=== PATIENT | male | born 1975 | race Caucasian/White ===

== ENCOUNTER 2017-11-21 05:33 | Inpatient (IN) | payer MEDICARE, OTHER ==
[2017-11-20 12:41] LABS: ABG BASE EXCESS 0.9 mmol/L (-2.0-3.0); ABG HCO3 24.6 mmol/L (22.0-26.0); ABG OXYGEN SATURATION 95.2 % (95-98); ABG PH (T) 7.441 (7.350-7.450); ABG PO2 (T) 74.1 mmHg (83-108); ALLEN'S TEST Positive; FCOHb 0.6 % (0.5-1.5); FMetHb 0.2 % (0.3-1.12); FO2Hb 94.4 % (94-100); TOTAL HEMOGLOBIN 16.6 G/dl (14.0-18.0)
[2017-11-20 14:16] LABS: BASOPHILS # (AUTO) 0.1 X10'3 (0-0.2); BASOPHILS % (AUTO) 0.9 % (0-1); EOSINOPHILS # (AUTO) 0.4 X10'3 (0-0.9); EOSINOPHILS % (AUTO) 5.5 % (0-6); LYMPHOCYTES # (AUTO) 1.7 X10'3 (1.1-4.8); LYMPHOCYTES % (AUTO) 21.7 % (21-51); MEAN CORPUSCULAR HEMOGLOBIN 29.3 PG (27.0-31.0); MEAN CORPUSCULAR HGB CONC 34.7 % (33.0-36.5); MEAN CORPUSCULAR VOLUME 84.6 FL (78-98); MEAN PLATELET VOLUME 9.4 FL (7.4-10.4); MONOCYTES # (AUTO) 0.5 X10'3 (0-0.9); MONOCYTES % (AUTO) 6.3 % (2-12); NEUTROPHILS # (AUTO) 5.2 X10'3 (1.8-7.7); NEUTROPHILS % (AUTO) 65.6 % (42-75); PRE OP HEMATOCRIT 46.6 % (42.0-52.0); PRE OP HEMOGLOBIN 16.2 g/dL (14.0-17.9); PRE OP PLATELET COUNT 192 X10'3 (140-440); RED BLOOD COUNT 5.51 X10'6 (4.70-6.10); RED CELL DISTRIBUTION WIDTH 13.4 % (11.5-14.5)
[2017-11-20 14:31] LABS: ALBUMIN/GLOBULIN RATIO 1.1 (1.1-1.5); ALKALINE PHOSPHATASE 135 IU/L (46-116); BLOOD UREA NITROGEN 10 MG/DL (7-18); BUN/CREATININE RATIO 13.5 (5.4-32.0); CHLORIDE 102 MMOL/L (99-107); CREATININE 0.74 MG/DL (0.60-1.10); PRE OP ALT 59 U/L (30-65); PRE OP ANION GAP 8 (8-16); PRE OP AST 23 U/L (10-37); PRE OP BILIRUB, TOTAL 0.8 MG/DL (0.0-1.0); PRE OP GLUCOSE 179 MG/DL (70-104); PRE OP POTASSIUM 4.1 MMOL/L (3.4-5.1); PRE OP SODIUM 140 MMOL/L (135-145); TOTAL CARBON DIOXIDE 29.8 MMOL/L (24-32); TOTAL PROTEIN 7.6 G/DL (6.4-8.2); eGFR > 90 ML/MIN
[2017-11-20 14:36] LABS: CLARITY,URINE Clear (Clear); COLOR,URINE Yellow (Yellow); GLUCOSE, URINE 500 mg/dl (Neg); KETONES,URINE Negative (Neg); LEUKOCYTE ESTERASE ,URINE Negative (Neg); NITRITES, URINE Negative (Neg); OCCULT BLOOD,URINE Negative (Neg); PH,URINE 7.5 (4.8-8.0); PROTEIN,URINE Negative (Neg)
[2017-11-20 14:45] LABS: UA COLLECTION TYPE CLN CATCH MIDSTREAM
[2017-11-21] VITALS (19 sets, daily range): BP systolic 88–140; BP diastolic 45–82
[~2017-11-21] VITALS: Ht 167.6 cm; Wt 105.2 kg
[~2017-11-21 05:33] MED LIST: ASCO-261 PO; ASPI81TA52 PO; ATOR40TA71 PO; CHOL10002 PO; DOCUMENT DATE & TIME OF BETA-BLOCKER PO ONE; GLYB5TAB7 PO; LORazepam 2 mg/ml vial IV ONE; MAGN400C PO; METF500T PO; METO25TA6 PO; POTASSIUM PO; VITA1TAB20 PO; albuterol 2.5 MG/3 ML nebule NEB ONE; cefazolin/dext.iso 2gm/50ml 50 ML IV ONE; dextrose 50%-water 50ml dispensing syringe IV PRN; diazepam 5mg tablet PO ONE; famotidine 20mg tablet PO ONE; metoprolol tartrate 12.5mg (1/2 tablet) PO ONE; ringers solution, lacted 1,000 ML IV SCH; vancomycin inj 1,500 MG in normal saline 300ml IV soln IV ONE
[2017-11-21] MEDS ORDERED: SUFENTANIL CITRATE 50 MCG/ML 2ml ampule IV ONE (07:14)
[2017-11-21] MEDS ORDERED: LORazepam 2 mg/ml vial ONE (07:18)
[2017-11-21] MEDS ORDERED: nitroGLYCERIN in D5W 50mg/250ml (Tridil) infusion IV ONE (07:20)
[2017-11-21] MEDS ORDERED: DOPamine/D5W 400mg/250ml bag IV ONE (07:20)
[2017-11-21] MEDS ORDERED: isoflurane 100ml inhalation liquid IH ONE (07:20)
[2017-11-21] MEDS ORDERED: LIDOcaine 2% (20mg/ml) 5ml vial ONE (07:20)
[2017-11-21] MEDS ORDERED: protamine sulf. 10mg/ml inj. IV ONE (07:20)
[2017-11-21] MEDS ORDERED: propofol inj 20 ML IV ONE (07:20)
[2017-11-21] MEDS ORDERED: rocuronium 10mg/ml inj IV ONE ×2 (07:21→08:57)
[2017-11-21] MEDS ORDERED: aminocaproic acid 250 MG/1 ML inj. ONE (08:00)
[2017-11-21 08:06] LABS: ABG BASE EXCESS -1.9 mmol/L (-2.0-3.0); ABG HCO3 23.5 mmol/L (22.0-26.0); ABG OXYGEN SATURATION 99.3 % (95-98); ABG PCO2 42.3 mmHg (35.0-45.0); ABG PH 7.363 (7.350-7.450); ABG PO2 267.7 mmHg (60.0-100.0); CL (ABG) 102 mmol/L (99-107); FCOHb 0.6 % (0.5-1.5); FMetHb 0.3 % (0.3-1.12); FO2Hb 98.4 % (94-100); GLUCOSE (ABG) 190 mg/dl (70-105); IONIZED CA (ABG) 1.13 mmol/L (1.03-1.32); K (ABG) 4.1 mmol/L (3.3-5.1); NA (ABG) 137 mmol/L (135-145); TOTAL HEMOGLOBIN 15.2 G/dl (14.0-18.0)
[2017-11-21] MEDS ORDERED: papaverine 30 mg/ml 2ml inj. IA ONE (08:56)
[2017-11-21] MEDS: insulin regular, human 100 UNITS in normal saline 100ml IV soln 99 ML IV SCH ×20 (09:20→22:14)
[2017-11-21] MEDS: mupirocin 2% ointment 22GM TP SCH ×2 (09:20→20:00)
[2017-11-21 09:26] LABS: ABG BASE EXCESS -1.7 mmol/L (-2.0-3.0); ABG HCO3 23.3 mmol/L (22.0-26.0); ABG OXYGEN SATURATION 98.1 % (95-98); ABG PCO2 40.3 mmHg (35.0-45.0); ABG PH 7.379 (7.350-7.450); ABG PO2 120.8 mmHg (60.0-100.0); CL (ABG) 102 mmol/L (99-107); FCOHb 0.5 % (0.5-1.5); FMetHb 0.1 % (0.3-1.12); FO2Hb 97.5 % (94-100); GLUCOSE (ABG) 160 mg/dl (70-105); IONIZED CA (ABG) 1.11 mmol/L (1.03-1.32); K (ABG) 4.2 mmol/L (3.3-5.1); NA (ABG) 130 mmol/L (135-145); TOTAL HEMOGLOBIN 14.5 G/dl (14.0-18.0)
[2017-11-21 09:45] LABS: ACT @ 1.70 U 350 SEC (193-297); ACT @ 2.84 U 440 SEC (260-420); BASELINE ACT 166 SEC (101-148)
[2017-11-21 10:16] LABS: ABG HCO3 20.3 mmol/L (22.0-26.0); ABG OXYGEN SATURATION 95.7 % (95-98); ABG PCO2 34.8 mmHg (35.0-45.0); ABG PH 7.384 (7.350-7.450); ABG PO2 78.1 mmHg (60.0-100.0); CL (ABG) 103 mmol/L (99-107); FCOHb 0.5 % (0.5-1.5); FMetHb 0.3 % (0.3-1.12); FO2Hb 94.9 % (94-100); GLUCOSE (ABG) 184 mg/dl (70-105); IONIZED CA (ABG) 1.12 mmol/L (1.03-1.32); K (ABG) 4.1 mmol/L (3.3-5.1); NA (ABG) 133 mmol/L (135-145); TOTAL HEMOGLOBIN 14.3 G/dl (14.0-18.0)
[2017-11-21] MEDS ORDERED: albumin (Human) 5% 250ml 250 ML IV ONE (10:28)
[2017-11-21] MEDS ORDERED: potassium Cl 20mEq/100mL bag 100 ML IV PRN ×2 (10:35)
[2017-11-21] MEDS ORDERED: Neutra Phos packet PO PRN (10:35)
[2017-11-21] MEDS ORDERED: sodium phosphate inj. 30 MMOL in dextrose 5%-water 250 ML IV PRN (10:35)
[2017-11-21] MEDS ORDERED: nitroGLYCERIN-Tridil 50MG/D5W 250 ML IV PRN (10:35)
[2017-11-21] MEDS ORDERED: ondansetron/PF 4mg/2ml inj IV PRN (10:35)
[2017-11-21] MEDS ORDERED: HYDROcodone/acetaminophen 10/325mg tab PO PRN ×2 (10:35)
[2017-11-21] MEDS ORDERED: insulin regular, human inj. 100 UNITS in normal saline 100ml IV soln 100 ML IV SCH ×2 (10:35)
[2017-11-21] MEDS ORDERED: dextrose 50%-water 50ml dispensing syringe IV PRN (10:35)
[2017-11-21] MEDS ORDERED: acetaminophen 325mg tablet PO PRN (10:35)
[2017-11-21] MEDS ORDERED: metoclopramide 5 mg/ml inj IV PRN (10:35)
[2017-11-21] MEDS ORDERED: magnesium hydroxide 30ml (MOM) UD suspension PO PRN (10:35)
[2017-11-21] MEDS ORDERED: sodium phosphate inj. 15 MMOL in dextrose 5%-water 150 ML IV PRN (10:35)
[2017-11-21] MEDS ORDERED: albumin (Human) 5% 250ml 250 ML IV PRN (10:35)
[2017-11-21] MEDS ORDERED: normal saline 250ml IV soln 250 ML IV PRN (10:35)
[2017-11-21] MEDS ORDERED: morphine 2 MG/ML inj. syringe IV PRN (10:35)
[2017-11-21] MEDS ORDERED: niCARDipine/sod cl 20mg/200ml 200 ML IV PRN (10:35)
[2017-11-21] MEDS ORDERED: DOPamine 400mg/D5W 250ml 250 ML IV PRN (10:35)
[2017-11-21 10:56] LABS: ABG BASE EXCESS -4.9 mmol/L (-2.0-3.0); ABG HCO3 19.6 mmol/L (22.0-26.0); ABG OXYGEN SATURATION 96.8 % (95-98); ABG PCO2 (T) 33.3 mmHg (35.0-48.0); ABG PH (T) 7.383 (7.350-7.450); ABG PO2 (T) 95.6 mmHg (83-108); FCOHb 0.3 % (0.5-1.5); FMetHb 0.3 % (0.3-1.12); FO2Hb 96.2 % (94-100); MINUTE VOLUME 10 L/min; PATIENT TEMPERATURE 36.1; PEEP 5 cm H2O; RESPIRATORY RATE 12 b/min; RESPIRATORY RATE (OBSERVED) 12 b/min; TIDAL VOLUME 750 mL; TOTAL HEMOGLOBIN 13.1 G/dl (14.0-18.0)
[2017-11-21] MEDS ORDERED: ipratropium/albuterol 3ml nebule IH SCH (11:00)
[2017-11-21 11:04] LABS: BASOPHILS % (AUTO) 0.2 % (0-1); EOSINOPHILS # (AUTO) 0.3 X10'3 (0-0.9); EOSINOPHILS % (AUTO) 3.3 % (0-6); HEMOGLOBIN 12.2 g/dl (14.0-17.9); LYMPHOCYTES # (AUTO) 0.9 X10'3 (1.1-4.8); LYMPHOCYTES % (AUTO) 10.7 % (21-51); MEAN CORPUSCULAR HEMOGLOBIN 29.4 PG (27.0-31.0); MEAN CORPUSCULAR HGB CONC 34.8 % (33.0-36.5); MEAN CORPUSCULAR VOLUME 84.7 FL (78-98); MEAN PLATELET VOLUME 8.8 FL (7.4-10.4); MONOCYTES # (AUTO) 0.4 X10'3 (0-0.9); MONOCYTES % (AUTO) 4.7 % (2-12); NEUTROPHILS # (AUTO) 6.8 X10'3 (1.8-7.7); NEUTROPHILS % (AUTO) 81.1 % (42-75); PLATELET COUNT 157 X10'3 (140-440); RED BLOOD COUNT 4.14 X10'6 (4.70-6.10); RED CELL DISTRIBUTION WIDTH 13.2 % (11.5-14.5); WHITE BLOOD COUNT 8.4 X10'3 (4.5-11.0)
[2017-11-21 11:14] LABS: INR 1.1 INR; PARTIAL THROMBOPLASTIN TIME 25 SECONDS (22-32); PROTHROMBIN TIME 11.6 SECONDS (9.0-12.0)
[2017-11-21 11:20] LABS: ALANINE AMINOTRANSFERASE 37 U/L (12-78); ALBUMIN/GLOBULIN RATIO 1.3 (1.1-1.5); ALKALINE PHOSPHATASE 89 IU/L (46-116); ANION GAP 11 (8-16); ASPARTATE AMINO TRANSFERASE 17 U/L (10-37); BILIRUBIN,TOTAL 0.5 MG/DL (0.1-1.0); BLOOD UREA NITROGEN 12 MG/DL (7-18); BUN/CREATININE RATIO 15.8 (5.4-32.0); CALCIUM 7.1 MG/DL (8.5-10.1); CHLORIDE 108 MMOL/L (99-107); CREATININE 0.76 MG/DL (0.60-1.10); GLUCOSE 170 MG/DL (70-104); MAGNESIUM 1.5 MG/DL (1.5-2.4); PHOSPHORUS 3.7 MG/DL (2.3-4.5); POTASSIUM 3.8 MMOL/L (3.5-5.1); SODIUM 142 MMOL/L (135-145); TOTAL CARBON DIOXIDE 23.3 MMOL/L (24-32); TOTAL PROTEIN 5.3 G/DL (6.4-8.2); eGFR > 90 ML/MIN
[2017-11-21] MEDS: sodium chloride 0.45% 1,000 ML IV SCH (11:24)
[2017-11-21] MEDS: insulin Lispro (HumaLOG) vial - multi-dose SQ SCH ×2 (11:44→17:39)
[2017-11-21 11:45] LABS: ACTIVATED CLOTTING TIME 119 SEC (101-148)
[2017-11-21] MEDS: morphine 2 MG/ML inj. syringe IV PRN ×3 (12:06→14:13)
[2017-11-21] MEDS: magnesium 2GM in 50ml NS 50 ML IV PRN (12:20)
[2017-11-21] MEDS: potassium Cl 20mEq/100mL bag 100 ML IV PRN ×2 (12:28→13:45)
[2017-11-21] MEDS: magnesium 4gm in 100ml NS 100 ML IV PRN (13:44)
[2017-11-21] MEDS: MORPHINE 2MG in 2ml NS syringe IV PRN ×3 (14:43→22:53)
[2017-11-21 16:01] LABS: ABG BASE EXCESS -7.3 mmol/L (-2.0-3.0); ABG HCO3 19.6 mmol/L (22.0-26.0); ABG OXYGEN SATURATION 94.3 % (95-98); ABG PCO2 (T) 44.8 mmHg (35.0-48.0); ABG PH (T) 7.259 (7.350-7.450); ABG PO2 (T) 82.6 mmHg (83-108); FCOHb 0.5 % (0.5-1.5); FMetHb 0.2 % (0.3-1.12); FO2Hb 93.6 % (94-100); MINUTE VOLUME 13 L/min; PEEP 5 cm H2O; TOTAL HEMOGLOBIN 14.8 G/dl (14.0-18.0)
[2017-11-21] MEDS ORDERED: morphine 10mg/ml inj. IV ONE (16:10)
[2017-11-21] MEDS: cefazolin 1gm/NS 100mL 100 ML IV SCH ×2 (16:13→23:36)
[2017-11-21 17:27] LABS: BASOPHILS % (AUTO) 0 % (0-1); EOSINOPHILS # (AUTO) 0.2 X10'3 (0-0.9); EOSINOPHILS % (AUTO) 1.6 % (0-6); HEMATOCRIT 38.5 % (42.0-52.0); HEMOGLOBIN 13.6 g/dl (14.0-17.9); LYMPHOCYTES # (AUTO) 0.5 X10'3 (1.1-4.8); LYMPHOCYTES % (AUTO) 3.3 % (21-51); MEAN CORPUSCULAR HEMOGLOBIN 29.7 PG (27.0-31.0); MEAN CORPUSCULAR HGB CONC 35.2 % (33.0-36.5); MEAN CORPUSCULAR VOLUME 84.3 FL (78-98); MEAN PLATELET VOLUME 8.9 FL (7.4-10.4); MONOCYTES # (AUTO) 0.8 X10'3 (0-0.9); NEUTROPHILS # (AUTO) 14.2 X10'3 (1.8-7.7); NEUTROPHILS % (AUTO) 90.1 % (42-75); PLATELET COUNT 208 X10'3 (140-440); RED BLOOD COUNT 4.57 X10'6 (4.70-6.10); RED CELL DISTRIBUTION WIDTH 12.9 % (11.5-14.5); WHITE BLOOD COUNT 15.8 X10'3 (4.5-11.0)
[2017-11-21 17:40] LABS: ALBUMIN 3.3 G/DL (3.4-5.0); ANION GAP 10 (8-16); BLOOD UREA NITROGEN 13 MG/DL (7-18); BUN/CREATININE RATIO 15.9 (5.4-32.0); CALCIUM 7.6 MG/DL (8.5-10.1); CHLORIDE 108 MMOL/L (99-107); CREATININE 0.82 MG/DL (0.60-1.10); GLUCOSE 136 MG/DL (70-104); POTASSIUM 4.3 MMOL/L (3.5-5.1); SODIUM 141 MMOL/L (135-145); eGFR > 90 ML/MIN
[2017-11-21 17:40] LABS: ABG BASE EXCESS -5.6 mmol/L (-2.0-3.0); ABG HCO3 19.1 mmol/L (22.0-26.0); ABG PCO2 (T) 34.9 mmHg (35.0-48.0); ABG PH (T) 7.356 (7.350-7.450); ABG PO2 (T) 69.6 mmHg (83-108); FCOHb 0.3 % (0.5-1.5); FMetHb 0.3 % (0.3-1.12); FO2Hb 93.4 % (94-100); TOTAL HEMOGLOBIN 13.9 G/dl (14.0-18.0)
[2017-11-21] MEDS: vancomycin/NS 1 GM ADD-VANTAGE 250 ML IV SCH (20:19)
[2017-11-21] MEDS: docusate sod 100mg capsule PO SCH (20:20)
[2017-11-21] MEDS: mupirocin 2% ointment 22GM NS SCH (20:23)
[2017-11-22] VITALS (24 sets, daily range): BP systolic 105–137; BP diastolic 44–70
[2017-11-22] MEDS: MORPHINE 2MG in 2ml NS syringe IV PRN ×4 (01:01→09:03)
[2017-11-22] MEDS: insulin regular, human 100 UNITS in normal saline 100ml IV soln 99 ML IV SCH ×4 (01:12→03:03)
[2017-11-22 05:22] LABS: BASOPHILS # (AUTO) 0.2 X10'3 (0-0.2); BASOPHILS % (AUTO) 1.4 % (0-1); EOSINOPHILS # (AUTO) 0.1 X10'3 (0-0.9); EOSINOPHILS % (AUTO) 1.1 % (0-6); HEMATOCRIT 37.1 % (42.0-52.0); HEMOGLOBIN 12.9 g/dl (14.0-17.9); LYMPHOCYTES # (AUTO) 1.3 X10'3 (1.1-4.8); LYMPHOCYTES % (AUTO) 12.1 % (21-51); MEAN CORPUSCULAR HEMOGLOBIN 29.7 PG (27.0-31.0); MEAN CORPUSCULAR HGB CONC 34.8 % (33.0-36.5); MEAN CORPUSCULAR VOLUME 85.2 FL (78-98); MEAN PLATELET VOLUME 9.1 FL (7.4-10.4); MONOCYTES % (AUTO) 8.8 % (2-12); NEUTROPHILS # (AUTO) 8.4 X10'3 (1.8-7.7); NEUTROPHILS % (AUTO) 76.6 % (42-75); PLATELET COUNT 189 X10'3 (140-440); RED BLOOD COUNT 4.35 X10'6 (4.70-6.10)
[2017-11-22 05:40] LABS: PARTIAL THROMBOPLASTIN TIME 26 SECONDS (22-32); PROTHROMBIN TIME 10.8 SECONDS (9.0-12.0)
[2017-11-22 06:18] LABS: ALANINE AMINOTRANSFERASE 48 U/L (12-78); ALBUMIN 3.1 G/DL (3.4-5.0); ALBUMIN/GLOBULIN RATIO 1.1 (1.1-1.5); ALKALINE PHOSPHATASE 84 IU/L (46-116); ANION GAP 10 (8-16); ASPARTATE AMINO TRANSFERASE 59 U/L (10-37); BLOOD UREA NITROGEN 12 MG/DL (7-18); BUN/CREATININE RATIO 16.9 (5.4-32.0); CALCIUM 7.8 MG/DL (8.5-10.1); CHLORIDE 105 MMOL/L (99-107); CREATININE 0.71 MG/DL (0.60-1.10); GLUCOSE 138 MG/DL (70-104); MAGNESIUM 2.1 MG/DL (1.5-2.4); PHOSPHORUS 3.6 MG/DL (2.3-4.5); POTASSIUM 3.9 MMOL/L (3.5-5.1); SODIUM 138 MMOL/L (135-145); TOTAL CARBON DIOXIDE 22.6 MMOL/L (24-32); TOTAL PROTEIN 5.9 G/DL (6.4-8.2); eGFR > 90 ML/MIN
[2017-11-22] MEDS: potassium Cl 20mEq/100mL bag 100 ML IV PRN ×2 (06:25→11:27)
[2017-11-22] MEDS ORDERED: albuterol 2.5 MG/3 ML nebule NEB PRN (07:15)
[2017-11-22] MEDS: ketorolac tromethamine 15mg/ml inj. IV SCH ×3 (07:40→20:53)
[2017-11-22] MEDS: cefazolin 1gm/NS 100mL 100 ML IV SCH ×3 (07:45→23:49)
[2017-11-22] MEDS: aspirin 325mg tablet, delayed-release (Ecotrin) PO SCH (07:46)
[2017-11-22] MEDS: pantoprazole 40mg Tablet.DR PO SCH (07:46)
[2017-11-22] MEDS: atorvastatin 10mg tablet PO SCH (07:47)
[2017-11-22] MEDS: docusate sod 100mg capsule PO SCH ×2 (07:47→19:55)
[2017-11-22] MEDS: ascorbic acid 500mg tablet PO SCH (07:47)
[2017-11-22] MEDS: mupirocin 2% ointment 22GM NS SCH (07:48)
[2017-11-22] MEDS: cholecalciferol (vitamin D) 400 unit tablet PO SCH (07:48)
[2017-11-22] MEDS: mupirocin 2% ointment 22GM TP SCH ×2 (07:49→22:16)
[2017-11-22] MEDS: vancomycin/NS 1 GM ADD-VANTAGE 250 ML IV SCH ×2 (07:49→19:52)
[2017-11-22] MEDS ORDERED: metoprolol tartrate 12.5mg (1/2 tablet) PO SCH ×2 (08:00→12:00)
[2017-11-22] MEDS: vitamin B comp w/Vit. C tab 1 TAB TABLET PO SCH (08:00)
[2017-11-22] MEDS: magnesium 2GM in 50ml NS 50 ML IV PRN (10:09)
[2017-11-22] MEDS: insulin Lispro (HumaLOG) vial - multi-dose SQ SCH ×3 (11:08→19:51)
[2017-11-22] MEDS ORDERED: metoprolol tartrate 12.5mg (1/2 tablet) PO ONE (12:00)
[2017-11-22 13:08] LABS: MAGNESIUM 2.9 MG/DL (1.5-2.4); POTASSIUM 4.5 MMOL/L (3.5-5.1)
[2017-11-22] MEDS: acetaminophen w/codeine (30MG) #3 tablet PO PRN ×3 (13:16→23:50)
[2017-11-22] MEDS ORDERED: metoprolol tartrate 25mg tablet PO SCH (13:45)
[2017-11-22] MEDS ORDERED: metoprolol tartrate 25mg tablet PO ONE (13:45)
[2017-11-22] MEDS ORDERED: glucagon, human recombinant 1mg kit SUBCUT PRN (16:00)
[2017-11-22] MEDS ORDERED: dextrose 50%-water 50ml dispensing syringe IV PRN ×2 (16:00)
[2017-11-22] MEDS ORDERED: MESSAGE TO PHARMACY PO ONE (16:00)
[2017-11-22] MEDS ORDERED: dextrose ORAL solution 15 GM/59 ML bottle PO PRN ×2 (16:00)
[2017-11-22] MEDS: metoprolol tartrate 50mg tablet PO SCH (19:57)
[2017-11-22] MEDS: Protein Shake (high protein) 240ml (8oz) cup PO SCH (19:59)
[2017-11-22] MEDS: insulin glargine (Lantus) pen - multi-dose SQ SCH (22:13)
[2017-11-23] VITALS (17 sets, daily range): BP systolic 107–156; BP diastolic 59–83
[2017-11-23] MEDS ORDERED: ketorolac tromethamine 15mg/ml inj. IV SCH (03:21)
[2017-11-23] MEDS: ketorolac tromethamine 15mg/ml inj. IV SCH (03:33)
[2017-11-23 04:42] LABS: BASOPHILS % (AUTO) 0.3 % (0-1); EOSINOPHILS # (AUTO) 0.3 X10'3 (0-0.9); EOSINOPHILS % (AUTO) 2.5 % (0-6); HEMATOCRIT 34.7 % (42.0-52.0); LYMPHOCYTES # (AUTO) 1.3 X10'3 (1.1-4.8); LYMPHOCYTES % (AUTO) 12.9 % (21-51); MEAN CORPUSCULAR HEMOGLOBIN 29.9 PG (27.0-31.0); MEAN CORPUSCULAR HGB CONC 34.6 % (33.0-36.5); MEAN CORPUSCULAR VOLUME 86.4 FL (78-98); MEAN PLATELET VOLUME 8.9 FL (7.4-10.4); MONOCYTES # (AUTO) 0.9 X10'3 (0-0.9); MONOCYTES % (AUTO) 8.6 % (2-12); NEUTROPHILS # (AUTO) 7.7 X10'3 (1.8-7.7); NEUTROPHILS % (AUTO) 75.7 % (42-75); PLATELET COUNT 168 X10'3 (140-440); RED BLOOD COUNT 4.01 X10'6 (4.70-6.10); RED CELL DISTRIBUTION WIDTH 13.4 % (11.5-14.5); WHITE BLOOD COUNT 10.2 X10'3 (4.5-11.0)
[2017-11-23 04:55] LABS: ALBUMIN 2.9 G/DL (3.4-5.0); ANION GAP 8 (8-16); BLOOD UREA NITROGEN 15 MG/DL (7-18); BUN/CREATININE RATIO 17.9 (5.4-32.0); CALCIUM 8.6 MG/DL (8.5-10.1); CHLORIDE 103 MMOL/L (99-107); CREATININE 0.84 MG/DL (0.60-1.10); GLUCOSE 201 MG/DL (70-104); MAGNESIUM 1.9 MG/DL (1.5-2.4); PHOSPHORUS 2.8 MG/DL (2.3-4.5); POTASSIUM 4.6 MMOL/L (3.5-5.1); SODIUM 136 MMOL/L (135-145); TOTAL CARBON DIOXIDE 25.4 MMOL/L (24-32); eGFR > 90 ML/MIN
[2017-11-23] MEDS: acetaminophen w/codeine (30MG) #3 tablet PO PRN ×5 (05:10→23:22)
[2017-11-23] MEDS: NUT.TX.GLUC.INTOLER,LAC-FR,REG (BOOST GLUCOSE CONTROL) 237 ML PO SCH (08:00)
[2017-11-23] MEDS: vitamin B comp w/Vit. C tab 1 TAB TABLET PO SCH (09:34)
[2017-11-23] MEDS: ascorbic acid 500mg tablet PO SCH (09:34)
[2017-11-23] MEDS: aspirin 325mg tablet, delayed-release (Ecotrin) PO SCH (09:35)
[2017-11-23] MEDS: metoprolol tartrate 50mg tablet PO SCH ×2 (09:35→19:31)
[2017-11-23] MEDS: atorvastatin 10mg tablet PO SCH (09:35)
[2017-11-23] MEDS: pantoprazole 40mg Tablet.DR PO SCH (09:36)
[2017-11-23] MEDS: docusate sod 100mg capsule PO SCH ×2 (09:36→20:46)
[2017-11-23] MEDS: Protein Shake (high protein) 240ml (8oz) cup PO SCH ×2 (09:36→13:39)
[2017-11-23] MEDS: cholecalciferol (vitamin D) 400 unit tablet PO SCH (09:37)
[2017-11-23] MEDS: mupirocin 2% ointment 22GM TP SCH ×2 (09:38→20:47)
[2017-11-23] MEDS: insulin Lispro (HumaLOG) vial - multi-dose SQ SCH ×4 (10:09→22:10)
[2017-11-23] MEDS: sodium chloride 0.45% 1,000 ML IV SCH (10:35)
[2017-11-23] MEDS ORDERED: morphine 4 MG/ML inj SYRINge IV PRN (18:56)
[2017-11-23] MEDS: magnesium 4gm in 100ml NS 100 ML IV PRN (19:25)
[2017-11-23] MEDS ORDERED: amiodarone 150mg/dext, iso-os 100 ML IV ONE ×2 (19:40)
[2017-11-23] MEDS: insulin glargine (Lantus) pen - multi-dose SQ SCH (22:12)
[2017-11-24] VITALS (24 sets, daily range): BP systolic 97–144; BP diastolic 57–84
[2017-11-24] MEDS: morphine 4 MG/ML inj SYRINge IV PRN ×2 (02:18→05:27)
[2017-11-24 03:10] LABS: BASOPHILS # (AUTO) 0.2 X10'3 (0-0.2); BASOPHILS % (AUTO) 1.5 % (0-1); EOSINOPHILS # (AUTO) 0.5 X10'3 (0-0.9); EOSINOPHILS % (AUTO) 4.5 % (0-6); HEMATOCRIT 34.8 % (42.0-52.0); LYMPHOCYTES # (AUTO) 2.1 X10'3 (1.1-4.8); LYMPHOCYTES % (AUTO) 20.1 % (21-51); MEAN CORPUSCULAR HGB CONC 34.6 % (33.0-36.5); MEAN CORPUSCULAR VOLUME 86.7 FL (78-98); MEAN PLATELET VOLUME 9.5 FL (7.4-10.4); MONOCYTES # (AUTO) 0.7 X10'3 (0-0.9); NEUTROPHILS % (AUTO) 66.9 % (42-75); PLATELET COUNT 176 X10'3 (140-440); RED BLOOD COUNT 4.01 X10'6 (4.70-6.10); RED CELL DISTRIBUTION WIDTH 13.3 % (11.5-14.5); WHITE BLOOD COUNT 10.4 X10'3 (4.5-11.0)
[2017-11-24 03:24] LABS: ALBUMIN 2.8 G/DL (3.4-5.0); ANION GAP 9 (8-16); BLOOD UREA NITROGEN 11 MG/DL (7-18); BUN/CREATININE RATIO 13.3 (5.4-32.0); CALCIUM 8.2 MG/DL (8.5-10.1); CHLORIDE 104 MMOL/L (99-107); CREATININE 0.83 MG/DL (0.60-1.10); GLUCOSE 215 MG/DL (70-104); MAGNESIUM 2.3 MG/DL (1.5-2.4); POTASSIUM 4.2 MMOL/L (3.5-5.1); SODIUM 139 MMOL/L (135-145); TOTAL CARBON DIOXIDE 26.2 MMOL/L (24-32); eGFR > 90 ML/MIN
[2017-11-24] MEDS: acetaminophen w/codeine (30MG) #3 tablet PO PRN ×5 (03:36→22:46)
[2017-11-24] MEDS: NUT.TX.GLUC.INTOLER,LAC-FR,REG (BOOST GLUCOSE CONTROL) 237 ML PO SCH ×3 (08:00→18:00)
[2017-11-24] MEDS: atorvastatin 10mg tablet PO SCH (09:39)
[2017-11-24] MEDS: aspirin 325mg tablet, delayed-release (Ecotrin) PO SCH (09:39)
[2017-11-24] MEDS: pantoprazole 40mg Tablet.DR PO SCH (09:39)
[2017-11-24] MEDS: metoprolol tartrate 50mg tablet PO SCH ×2 (09:40→19:58)
[2017-11-24] MEDS: docusate sod 100mg capsule PO SCH ×2 (09:40→19:58)
[2017-11-24] MEDS: ascorbic acid 500mg tablet PO SCH (09:41)
[2017-11-24] MEDS: cholecalciferol (vitamin D) 400 unit tablet PO SCH (09:41)
[2017-11-24] MEDS: vitamin B comp w/Vit. C tab 1 TAB TABLET PO SCH (09:41)
[2017-11-24] MEDS: mupirocin 2% ointment 22GM TP SCH ×2 (09:42→19:58)
[2017-11-24] MEDS: insulin Lispro (HumaLOG) vial - multi-dose SQ SCH ×3 (10:29→20:00)
[2017-11-24] MEDS: amiodarone/D5 450MG/250ML BAG 250 ML IV SCH (18:46)
[2017-11-24] MEDS: insulin glargine (Lantus) pen - multi-dose SQ SCH (21:37)
[2017-11-25] VITALS (20 sets, daily range): BP systolic 90–159; BP diastolic 57–81
[2017-11-25] MEDS: morphine 4 MG/ML inj SYRINge IV PRN (00:17)
[2017-11-25] MEDS: acetaminophen w/codeine (30MG) #3 tablet PO PRN ×4 (03:52→20:07)
[2017-11-25 06:07] LABS: BASOPHILS # (AUTO) 0.1 X10'3 (0-0.2); BASOPHILS % (AUTO) 0.7 % (0-1); EOSINOPHILS # (AUTO) 0.6 X10'3 (0-0.9); EOSINOPHILS % (AUTO) 7.1 % (0-6); HEMOGLOBIN 11.8 g/dl (14.0-17.9); LYMPHOCYTES # (AUTO) 1.9 X10'3 (1.1-4.8); LYMPHOCYTES % (AUTO) 21.3 % (21-51); MEAN CORPUSCULAR HEMOGLOBIN 29.8 PG (27.0-31.0); MEAN CORPUSCULAR HGB CONC 34.7 % (33.0-36.5); MEAN PLATELET VOLUME 9.8 FL (7.4-10.4); MONOCYTES # (AUTO) 0.6 X10'3 (0-0.9); MONOCYTES % (AUTO) 7.2 % (2-12); NEUTROPHILS # (AUTO) 5.6 X10'3 (1.8-7.7); NEUTROPHILS % (AUTO) 63.7 % (42-75); PLATELET COUNT 194 X10'3 (140-440); RED BLOOD COUNT 3.96 X10'6 (4.70-6.10); RED CELL DISTRIBUTION WIDTH 13.4 % (11.5-14.5); WHITE BLOOD COUNT 8.8 X10'3 (4.5-11.0)
[2017-11-25 06:22] LABS: ALBUMIN 2.5 G/DL (3.4-5.0); ANION GAP 11 (8-16); BLOOD UREA NITROGEN 15 MG/DL (7-18); BUN/CREATININE RATIO 19.5 (5.4-32.0); CALCIUM 8.5 MG/DL (8.5-10.1); CHLORIDE 100 MMOL/L (99-107); CREATININE 0.77 MG/DL (0.60-1.10); GLUCOSE 177 MG/DL (70-104); PHOSPHORUS 5.6 MG/DL (2.3-4.5); POTASSIUM 4.6 MMOL/L (3.5-5.1); SODIUM 137 MMOL/L (135-145); TOTAL CARBON DIOXIDE 26.4 MMOL/L (24-32); eGFR > 90 ML/MIN
[2017-11-25] MEDS: pantoprazole 40mg Tablet.DR PO SCH (08:07)
[2017-11-25] MEDS: atorvastatin 10mg tablet PO SCH (08:07)
[2017-11-25] MEDS: docusate sod 100mg capsule PO SCH ×2 (08:07→20:07)
[2017-11-25] MEDS: aspirin 325mg tablet, delayed-release (Ecotrin) PO SCH (08:07)
[2017-11-25] MEDS: mupirocin 2% ointment 22GM TP SCH ×2 (08:08→20:07)
[2017-11-25] MEDS: ascorbic acid 500mg tablet PO SCH (08:08)
[2017-11-25] MEDS: cholecalciferol (vitamin D) 400 unit tablet PO SCH (08:08)
[2017-11-25] MEDS: vitamin B comp w/Vit. C tab 1 TAB TABLET PO SCH (08:08)
[2017-11-25] MEDS: metoprolol tartrate 50mg tablet PO SCH (08:12)
[2017-11-25] MEDS: NUT.TX.GLUC.INTOLER,LAC-FR,REG (BOOST GLUCOSE CONTROL) 237 ML PO SCH ×3 (08:14→18:34)
[2017-11-25] MEDS: amiodarone/D5 450MG/250ML BAG 250 ML IV SCH (09:17)
[2017-11-25] MEDS: insulin Lispro (HumaLOG) vial - multi-dose SQ SCH ×3 (09:31→19:02)
[2017-11-25] MEDS ORDERED: furosemide 40mg/4ml inj IV ONE (10:10)
[2017-11-25] MEDS: sodium chloride 0.45% 1,000 ML IV SCH (10:35)
[2017-11-25] MEDS: amiodarone 200mg tablet PO SCH ×2 (12:51→20:06)
[2017-11-25] MEDS: metoprolol tartrate 25mg tablet PO SCH (20:07)
[2017-11-25] MEDS: insulin glargine (Lantus) pen - multi-dose SQ SCH (21:43)
[2017-11-26] VITALS (20 sets, daily range): BP systolic 95–149; BP diastolic 55–88
[2017-11-26] MEDS: acetaminophen w/codeine (30MG) #3 tablet PO PRN ×4 (03:07→20:34)
[2017-11-26 03:49] LABS: MAGNESIUM 2.3 MG/DL (1.5-2.4); PHOSPHORUS 5.5 MG/DL (2.3-4.5); POTASSIUM 4.1 MMOL/L (3.5-5.1)
[2017-11-26] MEDS: atorvastatin 20mg tablet PO SCH (07:21)
[2017-11-26] MEDS: ascorbic acid 500mg tablet PO SCH (07:22)
[2017-11-26] MEDS: cholecalciferol (vitamin D) 400 unit tablet PO SCH (07:22)
[2017-11-26] MEDS: pantoprazole 40mg Tablet.DR PO SCH (07:23)
[2017-11-26] MEDS: amiodarone 200mg tablet PO SCH ×3 (07:23→20:34)
[2017-11-26] MEDS: docusate sod 100mg capsule PO SCH ×2 (07:23→19:00)
[2017-11-26] MEDS: vitamin B comp w/Vit. C tab 1 TAB TABLET PO SCH (07:23)
[2017-11-26] MEDS: aspirin 325mg tablet, delayed-release (Ecotrin) PO SCH (07:25)
[2017-11-26] MEDS: metoprolol tartrate 25mg tablet PO SCH ×2 (07:28→19:00)
[2017-11-26] MEDS: mupirocin 2% ointment 22GM TP SCH ×2 (07:28→19:01)
[2017-11-26] MEDS: NUT.TX.GLUC.INTOLER,LAC-FR,REG (BOOST GLUCOSE CONTROL) 237 ML PO SCH ×3 (08:30→17:57)
[2017-11-26] MEDS: insulin Lispro (HumaLOG) vial - multi-dose SQ SCH ×3 (09:00→19:00)
[2017-11-26] MEDS: insulin glargine (Lantus) pen - multi-dose SQ SCH (21:28)
[2017-11-27] MEDS: acetaminophen w/codeine (30MG) #3 tablet PO PRN ×3 (00:40→11:01)
[2017-11-27 03:00] VITALS: BP 125/78
[2017-11-27] MEDS: amiodarone 200mg tablet PO SCH ×2 (03:06→12:52)
[2017-11-27 05:33] LABS: BASOPHILS # (AUTO) 0.1 X10'3 (0-0.2); BASOPHILS % (AUTO) 0.8 % (0-1); EOSINOPHILS # (AUTO) 0.6 X10'3 (0-0.9); EOSINOPHILS % (AUTO) 8.5 % (0-6); HEMOGLOBIN 14.3 g/dl (14.0-17.9); LYMPHOCYTES # (AUTO) 1.9 X10'3 (1.1-4.8); LYMPHOCYTES % (AUTO) 26.6 % (21-51); MEAN CORPUSCULAR HEMOGLOBIN 29.6 PG (27.0-31.0); MEAN CORPUSCULAR HGB CONC 34.9 % (33.0-36.5); MEAN CORPUSCULAR VOLUME 84.8 FL (78-98); MONOCYTES # (AUTO) 0.5 X10'3 (0-0.9); MONOCYTES % (AUTO) 7.4 % (2-12); NEUTROPHILS # (AUTO) 4.1 X10'3 (1.8-7.7); NEUTROPHILS % (AUTO) 56.7 % (42-75); PLATELET COUNT 269 X10'3 (140-440); RED BLOOD COUNT 4.84 X10'6 (4.70-6.10); RED CELL DISTRIBUTION WIDTH 13.2 % (11.5-14.5); WHITE BLOOD COUNT 7.2 X10'3 (4.5-11.0)
[2017-11-27 06:00] VITALS: BP 92/66
[2017-11-27 06:41] LABS: ALANINE AMINOTRANSFERASE 38 U/L (12-78); ALBUMIN 3.2 G/DL (3.4-5.0); ALBUMIN/GLOBULIN RATIO 0.7 (1.1-1.5); ALKALINE PHOSPHATASE 98 IU/L (46-116); ANION GAP 10 (8-16); ASPARTATE AMINO TRANSFERASE 21 U/L (10-37); BLOOD UREA NITROGEN 12 MG/DL (7-18); CALCIUM 9.1 MG/DL (8.5-10.1); CHLORIDE 102 MMOL/L (99-107); CREATININE 0.92 MG/DL (0.60-1.10); GLUCOSE 146 MG/DL (70-104); POTASSIUM 4.3 MMOL/L (3.5-5.1); SODIUM 141 MMOL/L (135-145); TOTAL PROTEIN 7.6 G/DL (6.4-8.2); eGFR 90 ML/MIN
[2017-11-27 07:44] LABS: MAGNESIUM 2.1 MG/DL (1.5-2.4)
[2017-11-27] MEDS ORDERED: aspirin 81mg tablet.DR PO SCH (08:00)
[2017-11-27] MEDS: vitamin B comp w/Vit. C tab 1 TAB TABLET PO SCH (08:00)
[2017-11-27] MEDS ORDERED: apixaban 5mg tablet PO SCH (08:00)
[2017-11-27] MEDS: cholecalciferol (vitamin D) 400 unit tablet PO SCH (08:00)
[2017-11-27 08:30] VITALS: BP 133/86
[2017-11-27] MEDS: insulin Lispro (HumaLOG) vial - multi-dose SQ SCH (08:37)
[2017-11-27] MEDS: pantoprazole 40mg Tablet.DR PO SCH (08:39)
[2017-11-27] MEDS: docusate sod 100mg capsule PO SCH (08:40)
[2017-11-27] MEDS: NUT.TX.GLUC.INTOLER,LAC-FR,REG (BOOST GLUCOSE CONTROL) 237 ML PO SCH (08:40)
[2017-11-27] MEDS: atorvastatin 20mg tablet PO SCH (08:42)
[2017-11-27] MEDS: metoprolol tartrate 25mg tablet PO SCH (08:43)
[2017-11-27] MEDS: ascorbic acid 500mg tablet PO SCH (08:43)
[2017-11-27 11:00] VITALS: BP 150/87
== END 2017-11-27 13:05 | DRG 236 ==
LOC: PAS IN 05:33 → EDSTATUS 07:30 → CICU 2S 10:26 → PCU 3S 11-26 16:25
PROVIDERS: ADMIT Thoracic Surgery (Cardiothoracic Vascular Surgery); ATTEND Thoracic Surgery (Cardiothoracic Vascular Surgery)
PROC: B24BZZ4 Ultrasonography of Heart with Aorta, Transesophageal (ICD-10-PCS; 2017-11-21)
PROC: 02HV33Z Insertion of Infusion Device into Superior Vena Cava, Percutaneous Approach (ICD-10-PCS; 2017-11-21)
PROC: 02HQ32Z Insertion of Monitoring Device into Right Pulmonary Artery, Percutaneous Approach (ICD-10-PCS; 2017-11-21)
PROC: 4A133B3 Monitoring of Arterial Pressure, Pulmonary, Percutaneous Approach (ICD-10-PCS; 2017-11-21)
PROC: 4A1239Z Monitoring of Cardiac Output, Percutaneous Approach (ICD-10-PCS; 2017-11-21)
PROC: 02100Z9 Bypass Coronary Artery, One Artery from Left Internal Mammary, Open Approach (ICD-10-PCS; principal; 2017-11-21 07:20)
DX: I25.110 Atherosclerotic heart disease of native coronary artery with unstable angina pectoris (principal); E66.01 Morbid (severe) obesity due to excess calories; Z89.611 Acquired absence of right leg above knee; I48.91 Unspecified atrial fibrillation; I10 Essential (primary) hypertension; E78.5 Hyperlipidemia, unspecified; E11.9 Type 2 diabetes mellitus without complications; G47.30 Sleep apnea, unspecified; Z79.84 Long term (current) use of oral hypoglycemic drugs; Z68.37 Body mass index [BMI] 37.0-37.9, adult
CPT/HCPCS: 0232T; 93312; 93325; 36415; 36600; 71045; 71046; 80048; 80053; 81003; 82330; 82435; 82803; 82947; 82948; 83036; 83735; 84100; 84132; 84295; 85018; 85025; 85347; 85384; 85610; 85730; 86885; 86900; 86901; 86920; 87070; 93005; 93880; 93971; 94002; 94010; 94640; 94668; 94760; 97110; 97116; 97162; 97530; A4333; A6213; A6255; A6258; A6402; A6449; A7000; A7015; A7048; C1713; C1751; J0282; J0690; J1265; J1644; J1815; J1885; J1940; J2001; J2060; J2270; J2274; J2405; J2440; J2704; J2720; J3370; J3475; J3480; J3490; J7030; J7120; P9045

== ENCOUNTER 2018-12-10 01:13 | Emergency (ER) | payer MEDICARE, OTHER ==
[~2018-12-10] VITALS: Ht 172.7 cm; Wt 118.2 kg
[~2018-12-10 01:13] MED LIST changes: -DOCUMENT DATE & TIME OF BETA-BLOCKER PO ONE; -LORazepam 2 mg/ml vial IV ONE; -albuterol 2.5 MG/3 ML nebule NEB ONE; -cefazolin/dext.iso 2gm/50ml 50 ML IV ONE; -dextrose 50%-water 50ml dispensing syringe IV PRN; -diazepam 5mg tablet PO ONE; -famotidine 20mg tablet PO ONE; -metoprolol tartrate 12.5mg (1/2 tablet) PO ONE; -ringers solution, lacted 1,000 ML IV SCH; -vancomycin inj 1,500 MG in normal saline 300ml IV soln IV ONE
[2018-12-10 02:35] LABS: BASOPHILS # (AUTO) 0.1 X10'3 (0-0.2); BASOPHILS % (AUTO) 1.4 % (0-1); EOSINOPHILS # (AUTO) 0.3 X10'3 (0-0.9); EOSINOPHILS % (AUTO) 5.3 % (0-6); HEMATOCRIT 50.1 % (42.0-52.0); HEMOGLOBIN 16.7 g/dl (14.0-17.9); MEAN CORPUSCULAR HEMOGLOBIN 28.4 PG (27.0-31.0); MEAN CORPUSCULAR HGB CONC 33.4 g/dL (33.0-36.5); MEAN CORPUSCULAR VOLUME 84.8 FL (78-98); MEAN PLATELET VOLUME 9.4 FL (7.4-10.4); MONOCYTES # (AUTO) 0.4 X10'3 (0-0.9); MONOCYTES % (AUTO) 6.7 % (2-12); NEUTROPHILS % (AUTO) 51.6 % (42-75); PLATELET COUNT 151 X10'3 (140-440); WHITE BLOOD COUNT 5.8 X10'3 (4.5-11.0)
[2018-12-10 02:49] LABS: ALANINE AMINOTRANSFERASE 29 U/L (12-78); ALBUMIN 3.7 G/DL (3.4-5.0); ALBUMIN/GLOBULIN RATIO 1.2 (1.1-1.5); ALKALINE PHOSPHATASE 126 IU/L (46-116); ANION GAP 11 (8-16); ASPARTATE AMINO TRANSFERASE 11 U/L (10-37); BILIRUBIN,TOTAL 0.5 MG/DL (0.1-1.0); BLOOD UREA NITROGEN 15 MG/DL (7-18); BUN/CREATININE RATIO 17.6 (5.4-32.0); CALCIUM 8.9 MG/DL (8.5-10.1); CHLORIDE 101 MMOL/L (99-107); CREATININE 0.85 MG/DL (0.60-1.10); GLUCOSE 200 MG/DL (70-104); POTASSIUM 3.7 MMOL/L (3.5-5.1); SODIUM 135 MMOL/L (135-145); TOTAL CARBON DIOXIDE 23.2 MMOL/L (24-32); TOTAL PROTEIN 6.9 G/DL (6.4-8.2); eGFR > 90 ML/MIN
[2018-12-10 03:17] VITALS: BP 141/76
== END 2018-12-10 03:18 | disposition home or self-care (01) ==
LOC: ER 01:16
DX: R07.89 Other chest pain (principal); R10.31 Right lower quadrant pain; E11.9 Type 2 diabetes mellitus without complications; Z79.899 Other long term (current) drug therapy; Z79.82 Long term (current) use of aspirin; Z89.611 Acquired absence of right leg above knee
CPT/HCPCS: 36415; 71045; 80053; 84484; 85025; 93005; 99284

== ENCOUNTER 2019-11-28 21:37 | Emergency (ER) | payer MEDICARE, OTHER ==
[~2019-11-28] VITALS: Ht 172.7 cm; Wt 86.4 kg
[2019-11-28 21:39] VITALS: BP 152/93
== END 2019-11-28 22:14 ==
LOC: ER 21:37
DX: Z04.3 Encounter for examination and observation following other accident (principal); E11.9 Type 2 diabetes mellitus without complications; Z89.611 Acquired absence of right leg above knee; Z79.82 Long term (current) use of aspirin; Z79.899 Other long term (current) drug therapy
CPT/HCPCS: 82948; 99283

== ENCOUNTER 2021-07-17 05:45 | Emergency (ER) | payer MEDICARE, OTHER ==
[~2021-07-17] VITALS: Ht 172.7 cm; Wt 88.4 kg
[~2021-07-17 05:45] MED LIST changes: +LOP25T PO; -METO25TA6 PO
[2021-07-17 05:50] VITALS: BP 200/108
[2021-07-17] MEDS ORDERED: sulfamethoxazole/trimethoprim DS (800/160mg) tablet PO ONE (06:40)
[2021-07-17] MEDS ORDERED: SULF1TAB49 PO (06:40)
[2021-07-17] MEDS ORDERED: bacitracin 15gm ointment TP ONE (06:40)
[2021-07-17] MEDS ORDERED: ondansetron 4mg rapidly disintigrating tab PO ONE (06:40)
== END 2021-07-17 07:39 | disposition home or self-care (01) ==
LOC: ER 05:46
DX: T23.102A Burn of first degree of left hand, unspecified site, initial encounter (principal); X19.XXXA Contact with other heat and hot substances, initial encounter; Y93.89 Activity, other specified; Y92.89 Other specified places as the place of occurrence of the external cause; Y99.8 Other external cause status
CPT/HCPCS: 16000; 73660; 99284